=== PATIENT | female | born 1945 | race African-American/Black ===

== ENCOUNTER 2024-09-11 10:22 | Inpatient (IN) | payer OTHER ==
[2024-09-11] VITALS (10 sets, daily range): BP systolic 128–181; BP diastolic 50–68; PULSE 66–78; RESP 12–22; TEMP 98.2–98.9; O2SAT 100
[~2024-09-11] VITALS: Ht 157.5 cm; Wt 92.2 kg
[~2024-09-11 10:22] MED LIST: DILT-14 PO; DULO1CAP5 PO; FEBU40TA6 PO; FURO40TA4 PO; POTA-228 PO
--- NOTE | 2024-09-11 10:44 | ED.PDOC ---
HPI Comments 78y F who presents to the ED via EMS for chief complaint of chest pain - pt states she has been having chest pain with associated shortness of breath for the past 6 days. - pt states her chest pain was exacerbated today and pt called EMS to the scene - EMS states pt had 02 sat of 100% on room air but was placed on 2 L due to complaint of shortness of breath and arrived to the ED on supplemental 02 - pt states the pain is center of chest, non-radiating, with no other exac erbating or relieving factors - pt also states she is on blood thinner but unknown which one - pt otherwise denies any other symptoms at this time PMH: CHF, DM 2(cataracts, peripheral neuropathy), HTN, colon and breast cancer, ckd x3, obesity, HLD, acute on chronic resp failure, aortic valve disease, pulm HTN, rhabdomyolysis, PSH: breast cancer surgery, Meds: metformin, Cymbalta, glipizide, diltiazem, Lasix, Allergies: morphine social history: denies ETOH use, denies tobacco use, denies drug use SUZIE ALCARAZ: VERENICE, CP/SOB/ MURMUR/ BLOOD THINNERS. HPI: Poor Historian. Midsternal chest pain nonradiating with the associated shortness of breath x1 day. Patient is brought in from [facility] for evaluation of chest pain. Per EMS report, patient's oxygen was stable at room air. She has been on supplemental oxygen and went to visit the clinic today to be weaned off of her oxygen. Patient states that she is feeling better at this time but still has some chest pain. Later in the course at this time at 1:40 p.m. patient when asked she said that she has black stool. She said that she had blood transfusion last March. Black stool for the last three days. REVIEW OF SYSTEMS: CONSTITUTIONAL: Denies acute: fever, diaphoresis, chills, generalized weakness. HEAD: Denies acute: headache, photophobia Eyes: Denies acute: Double vision, vision loss, eye pain, eye discharge. EARS: Denies acute: tinnitus, hearing loss, ear discharge, ear pain, THROAT: Denies acute: sore throat, swelling, difficulty swallowing , pain with swallowing, change in voice. NECK: Denies acute: neck pain, neck swelling, stiff neck. HEART: Denies acute : chest pain, palpitations, LUNGS: Denies acute: wheezing, cough, hemoptysis ABDOMEN: Denies acute: abdominal pain, Nausea, Vomiting, diarrhea, melena , hematemesis, hematochezia SKIN: Denies acute: rash, redness, lesions, itchiness. EXTREMITIES: Denies acute: calf pain, numbness, tingling, weakness, denies pain in extremity. Denies acute: Low back pain. Neuro: Denies acute: focal neurological deficit, motor or sensory focal neurological deficit, tremors, seizure like activity, confusion, dizziness, change in mental status, loss of bowel or bladder function, cauda equina like symptoms. : Denies acute: dysuria, hematuria, flank pain, increase in urinary frequency. PSYCH: Denies acute: hallucination, suicidal ideation, homicidal ideation. FEMALE: Denies acute: abnormal vaginal bleeding, foul odor, unusual discharge. PHYSICAL EXAM: General: ---mild-----acute distress, awake and alert. Head: normocephalic, atraumatic. Neck: supple, trachea is midline, no swelling. Throat: Normal phonation. Eyes:, no erythema, no purulent discharge, no proptosis, no icterus. Heart: regular rate, regular rhythm, mild murmur appreciated. Lungs: no apparent respiratory distress, Able to speak in full sentences. No wheezing, no rhonchi, no crackles. No stridors Clear to auscultation bilaterally. Abdomen: non tender to palpation, non distended, soft, no guarding, no rebound, + bowel sounds. Neuro: Awake, Alert, oriented to name, self, situation, follows commands GCS=15. Speech is normal. Skin: no petechia, no purpura, no cyanosis, non-pale, not jaundice. Lower extremities: --trace bilateral- Pitting edema no deformity, no focal swelling, no calf TTP. Makes eye contact. moves all four extremities. Face: no apparent facial droop. ED COURSE: Chief Complaint: Chest Pain Time Seen by MD: 11:24 Reviewed Notes: Nurses Notes, Steel Pourer Notes, Medications Allergies: Coded Allergies: NSAIDs (Verified Allergy, Unknown, 09/11/24) Information Source: Patient, Emergency Med Personnel Mode of Arrival: EMS Brought in by: EMS Was a procedure done? Was a procedure done?: No CP Differential Dx Differential Diagnosis: N/A Differential Diagnosis: Other (Ddx include but not limitied to gastritis, musculoskeletal pain, radiculopathy, atypical chest pain, dissection, aneurysm, ACS, unstable angina, hiatal hernia, GERD, anxiety, costochondritis, PE, pneumothroax, neoplasm, cardiac ischemia, drug abuse, anemia.) X-Ray, Labs, Meds, VS Vital Signs Date Time Temp Pulse Resp B/P (MAP) Pulse Ox O2 Delivery O2 Flow Rate FiO2 09/11/24 18:00 71 18 173/53 (93) 98 09/11/24 17:45 98.8 75 22 175/68 98.8 09/11/24 17:00 72 18 161/60 (93) 100 09/11/24 16:55 98.9 66 16 181/67 98.9 09/11/24 16:33 98.8 72 18 165/63 98.8 09/11/24 16:00 69 09/11/24 16:00 72 20 165/63 (97) 100 09/11/24 15:00 70 20 157/61 (93) 100 09/11/24 14:00 71 18 171/65 (100) 100 09/11/24 13:00 74 16 176/56 (96) 100 09/11/24 12:00 71 20 157/59 (91) 100 09/11/24 12:00 72 09/11/24 11:50 72 18 100 Nasal Cannula* 2 28 09/11/24 11:50 98.8 72 18 150/54 (86) 100 98.8 09/11/24 10:41 82 09/11/24 10:22 98.1 67 24 139/55 (83) 100 98.1 Lab Test 09/11/24 14:02 09/11/24 12:00 09/11/24 11:08 Range/Units Troponin I High Sensitivity 12 9 10 </=34 ng/L White Blood Count 6.3 4.4-10.8 10^3/uL Red Blood Count 2.92 L 4.0-5.20 10^6/uL Hemoglobin 5.9 *L 12.2-16.2 g/dL Hematocrit 19.0 L 36.0-46.0 % Mean Corpuscular Volume 65.3 L 80.0-100.0 fL Mean Corpuscular Hemoglobin 20.4 L 28.0-32.0 pg Mean Corpuscular Hemoglobin Concent 31.2 L 32.0-36.0 g/dL Red Cell Distribution Width 22.1 H 11.8-14.3 % Platelet Count 235 140-450 10^3/uL Mean Platelet Volume 8.5 6.9-10.8 fL Neutrophils (%) (Auto) 71.7 37.0-80.0 % Lymphocytes (%) (Auto) 20.2 10.0-50.0 % Monocytes (%) (Auto) 5.4 0.0-12.0 % Eosinophils (%) (Auto) 1.3 0.0-7.0 % Basophils (%) (Auto) 1.4 0.0-2.0 % Neutrophils # (Auto) 4.5 1.6-8.6 10 ^3/uL Lymphocytes # (Auto) 1.3 0.4-5.4 10 ^3/uL Monocytes # (Auto) 0.3 0-1.3 10 ^3/uL Eosinophils # (Auto) 0.1 0-0.8 10 ^3/uL Basophils # (Auto) 0.1 0-0.2 10 ^3/uL Nucleated Red Blood Cells 0.1 % Platelet Estimate Adequate Hypochromasia (manual) Moderate Anisocytosis (manual) Slight Microcytosis Moderate Ovalocytes Few Sodium Level 142 136-145 mmol/L Potassium Level 4.1 3.5-5.1 mmol/L Chloride Level 104 98-107 mmol/L Carbon Dioxide Level 30 20-31 mmol/L Anion Gap 8 5-15 Blood Urea Nitrogen 35 H 9-23 mg/dL Creatinine 1.41 H 0.550-1.02 mg/dL Glomerular Filtration Rate Calc 38 >90 mL/min BUN/Creatinine Ratio 24.8 H 10.0-20.0 Serum Glucose 154 H 74-106 mg/dL Calcium Level 11.0 H 8.7-10.4 mg/dL Total Bilirubin 0.4 0.2-1.0 mg/dL Aspartate Amino Transferase (AST) 11 L 13-40 U/L Alanine Aminotransferase (ALT) 15 7-40 U/L Alkaline Phosphatase 54 46-116 U/L B-Type Natriuretic Peptide 104.82 0-100 pg/mL Total Protein 6.9 5.7-8.2 g/dL Albumin 4.2 3.2-4.8 g/dL Current Medications Medications (Trade) Dose Ordered Sig/Nelida Route Start Time Stop Time Status Last Admin Acetaminophen/ Hydrocodone Bitart (Onia 5/325MG Tab) 1 tab ONCE ONCE PO 09/11/24 12:45 09/11/24 12:46 DC 09/11/24 12:58 Pantoprazole Sodium (Protonix) 40 mg ONCE ONCE IV 09/11/24 13:45 09/11/24 13:47 DC 09/11/24 16:09 [place] [address] Ph: [phone] DIAGNOSTIC IMAGING Diagnostic Imaging Report : [id number] Signed PATIENT: SUZIE ALCARAZ ACCT: [id number] UNIT: [id number] : 1945 LOC: ER ROOM / BED: / AGE / SEX: 78 / F ADM STATUS: REG ER SERVICE 1041 ORDERING PHYSICIAN: ALONA CHERRY DO PROCEDURE(s): CXRP - CHEST PORTABLE REASON: cp/sob ORDER NUMBER(s): [id number], ACCESSION NUMBER(s): [id number] XY CHEST PORTABLE, HISTORY: cp/sob COMPARISON: None None TECHNICAL DATA: 1 view of the chest was obtained. FINDINGS: Lines and tubes: None Cardiomediastinal silhouette: normal Pulmonary vasculature: normal Lung expansion: normal Lung airspace: normal Lung interstitium: normal Pleura: normal Pneumothorax: no Bones: Unremarkable Other: no IMPRESSION: No acute intrathoracic abnormality. ATED BY: CESAR BUSTILLO MD DICTATED DATE/TIME: 09/11/241127 SIGNED BY: CESAR BUSTILLO MD SIGNED DATE/TIME: 09/11/241127 CC: Time of 1ST Reevaluation: 13:44 (The case was discussed with the [facility] admitting team (HPI, physical exam, labs and diagnostic tests that were available at the time of disposition, ED course, treatment plan) on the phone. They transfer the patient to their service by ALS for further evaluation and treatment. Dr. Degroot. Authorization number is--[id number] states that her chest pain improved. Patient consents to blood transfusion.) Reevaluation 1ST: Unchanged Time of 2ND Reevaluation: 20:52 Reevaluation 2ND: Improved Patient Education/Counseling: Diagnosis, Treatment Family Education/Counseling: No Family Present Comments Patient presented with the above HPI.--chest pain/dyspnea----workup was initiated. patient was found with the above mentioned diagnosis. the following medications were ordered: please refer to order lists of meds and tests obtained by myself Dr. Cherry. Patient ED course and VS have been stabilized. Patient has been reassessed in the ED and remained in a stable condition. Pertinent incidental findings were discussed with the patient and/or family. Patient/family voices understanding and is agreeable with plan. Patient has been observed in the ED adequate length of time to insure improvement/stability. Escalation of care considered: Consideration of escalation to observation or admission Patient was consented for blood transfusion. We contacted [facility] and they took an excessively long time to respond and arrange for transfer. There was the major delay of care due to [facility]. Patient was ADMITTED to the medicine team for further evaluation and treatment of their presentation. All the reports of any imaging studies that were ordered by myself were reviewed by myself. Departure 1 Departure Time of Disposition: 12:20 Impression: Primary Impression: Symptomatic anemia Additional Impressions: Chest pain Dyspnea Melena Disposition: ADMITTED INPATIENT Admit to: [facility] Condition: Guarded Discharged With: Self Critical Care Note Critical Care Time?: Yes (45 min-critical care time only) Heart Score Heart Score: Heart Score Response (Comments) Value History Moderate Suspicious 1 EKG Normal 0 Age >65 2 Risk Factors >3 or Hx ASHD 2 Troponin Normal limit 0 Total 5 I personally scribed for ALONA CHERRY DO ([email or web address]) on 09/11/24 at 10:44. Electronically submitted by Altaf Godoy ([email or web address]). I personally scribed for ALONA CHERRY DO (CHRISTIANOFARMI) on 09/11/24 at 11:26. Electronically submitted by Altaf Godoy ([email or web address]). I personally scribed for ALONA CHERRY DO ([email or web address]) on 09/11/24 at 13:52. Electronically submitted by Altaf Godoy ([email or web address]). ALONA CHERRY DO September 11, 2024 10:44
[2024-09-11 11:17] LABS: Basophils # (auto) 0.1 10 ^3/uL (0-0.2); Eosinophils # (auto) 0.1 10 ^3/uL (0-0.8); Eosinophils % (auto) 1.3 % (0.0-7.0); Lymphocytes # (auto) 1.3 10 ^3/uL (0.4-5.4); Mean Corpuscular Hemoglobin 20.4 pg (28.0-32.0); Mean Corpuscular Hgb Conc. 31.2 g/dL (32.0-36.0); Mean Corpuscular Volume 65.3 fL (80.0-100.0); Nucleated Red Blood Cells % 0.1 %; Red Blood Cells 2.92 10^6/uL (4.0-5.20)
[2024-09-11 11:18] LABS: Basophils % (auto) 1.4 % (0.0-2.0); Lymphocytes % (auto) 20.2 % (10.0-50.0); Monocytes # (auto) 0.3 10 ^3/uL (0-1.3); Monocytes % (auto) 5.4 % (0.0-12.0); Neutrophils # (auto) 4.5 10 ^3/uL (1.6-8.6); Neutrophils % (auto) 71.7 % (37.0-80.0); Platelet Count (auto) 235 10^3/uL (140-450); White Blood Cell 6.3 10^3/uL (4.4-10.8)
[2024-09-11 11:21] LABS: Red Cell Distribution Width 22.1 % (11.8-14.3)
[2024-09-11 11:23] LABS: Hemoglobin 5.9 g/dL (12.2-16.2)
[2024-09-11] MEDS: NITROGLYCERIN 0.4 MG SL TAB SL ONE (11:30)
--- NOTE | 2024-09-11 11:30 | DVH ---
XY CHEST PORTABLE, HISTORY: cp/sob COMPARISON: None None TECHNICAL DATA: 1 view of the chest was obtained. FINDINGS: Lines and tubes: None Cardiomediastinal silhouette: normal Pulmonary vasculature: normal Lung expansion: normal Lung airspace: normal Lung interstitium: normal Pleura: normal Pneumothorax: no Bones: Unremarkable Other: no IMPRESSION: No acute intrathoracic abnormality.
[2024-09-11 11:32] LABS: Alanine Aminotransferase 15 U/L (7-40); Alkaline Phosphatase 54 U/L (46-116); Anion Gap 8 (5-15); BUN/Creatinine Ratio 24.8 (10.0-20.0); Carbon Dioxide 30 mmol/L (20-31); Chloride 104 mmol/L (98-107); Potassium 4.1 mmol/L (3.5-5.1); Sodium 142 mmol/L (136-145); Total Protein 6.9 g/dL (5.7-8.2)
[2024-09-11 11:33] LABS: Albumin 4.2 g/dL (3.2-4.8); Aspartate Aminotransferase 11 U/L (13-40); Bilirubin, Total 0.4 mg/dL (0.2-1.0); Blood Urea Nitrogen 35 mg/dL (9-23); Glucose 154 mg/dL (74-106)
[2024-09-11 11:57] LABS: Platelet Estimate Adequate
[2024-09-11 11:58] LABS: Anisocytosis Slight; Hypochromia Moderate
[2024-09-11 12:00] LABS: Ovalocytes FEW
[2024-09-11] MEDS: HYDROcodone-ACET 5/325MG TAB PO ONE (12:58)
[2024-09-11] MEDS: HYDROcodone-ACET 5/325MG TAB ONE (13:06)
[2024-09-11] MEDS: PANTOPRAZOLE 40 MG/10 ML VIAL INJ IV ONE (15:02)
[2024-09-11] MEDS ORDERED: ONDANSETRON HCL 4 MG/2 ML VIAL IV PRN (19:00)
[2024-09-11] MEDS ORDERED: hydrALAZINE HCL 20 MG/ML VL IV PRN (19:00)
--- NOTE | 2024-09-11 19:02 | ECG ---
[facility] Test Date: 2024-09-11 Test Time: 10:28:59 Pat Name: SUZIE ALCARAZ Department: ED Room: 0280 Gender: F Family Welfare Social Work Professor: NATALIIA : 1945 Requested By: ALONA CHERRY Order Number: [id number] Reading MD: Trey Esposito Measurements Intervals Mobile Rate: 82 P: 0 SD: 0 QRS: 18 QRSD: 83 T: 143 QT: 374 QTc: 437 Interpretive Statements Atrial flutter with predominant 4:1 AV block LVH with secondary repolarization abnormality Anterior Q waves, possibly due to LVH Electronically Signed On 09-12-2024 21:12:36 PDT by Trey Esposito Please click the below link to view image of tracing.
[2024-09-11 20:26] LABS: INR 1.07 (0.9-1.15); Partial Thromboplastin Time 23.6 SEC (24.5-34.5); Prothrombin Time 11.3 sec (9.3-11.8)
--- NOTE | 2024-09-11 21:36 | DVHHP2 ---
History of Present Illness Reason for Visit: Shortness for breath History of Present Illness 78-year-old female presents for evaluation of shortness for breath. Patient initially presented to have her oxygen tank refilled. She was complaining of shortness for breath that has been ongoing for the past six days as well as intermittent substernal chest pain. A pertinent further assessment patient also relays having dark colored stools over the past three days. She reports taking a blood thinner but does not recall the name. Denies hematemesis or melena. No dizziness. No other acute complaints reported. Past Medical History Diabetes mellitus, congestive heart failure, hypertension, breast cancer, pulmonary hypertension, aortic valve Past Surgical History Bilateral mastectomy, Family History Noncontributory Smoke: No ALCOHOL: none Drugs: None Lives: with Family Review of Systems Review of Systems Review of systems are currently negative otherwise addressed in HPI. Allergies: Coded Allergies: NSAIDs (Verified Allergy, Unknown, 09/11/24) Medications Current Medications Medications Dose Ordered Sig/Nelida Route Start Time Stop Time Status Last Admin Dose Admin Diltiazem HCl 120 mg DAILY PO 09/12/24 10:00 Hydralazine HCl 10 mg Q6HP PRN IV 09/11/24 19:00 Furosemide 20 mg DAILY IV 09/12/24 10:00 Ondansetron HCl 4 mg Q4HP PRN IV 09/11/24 19:00 Pantoprazole Sodium 40 mg BID IV 09/11/24 22:00 Acetaminophen/ Hydrocodone Bitart 1 tab Q6HPRN PRN PO 09/11/24 21:30 UNV Exam Vital Signs Vital Signs Date Time Temp Pulse Resp B/P (MAP) Pulse Ox O2 Delivery O2 Flow Rate FiO2 09/11/24 20:00 70 09/11/24 19:10 98.9 19 128/50 98.9 09/11/24 18:00 98 09/11/24 11:50 Nasal Cannula* 2 28 Exam Gen: 78-year-old female in mild distress. Skin: Warm, dry, normal color and texture, no rash. HEENT: Normocephalic atraumatic, mucous membranes moist and pink. Neck: Cervical and supraclavicular nodes normal without enlargement, trachea is midline, thyroid gland is normal without masses. Pulmonary: Clear to auscultation and percussion bilaterally. Cardiac: Regular rate and rhythm. No murmur Abdomen: Soft, nontender, nondistended, bowel sounds present all 4 quadrants, no guarding, no rigidity, no organomegaly. Extremities: No cyanosis, clubbing, no edema Neuro: Cranial nerves II through XII grossly intact, normal affect and speech, no focal motor deficits. Labs/Xrays ORDERING PHYSICIAN: ALONA CHERRY DO PROCEDURE(s): CXRP - CHEST PORTABLE REASON: cp/sob ORDER NUMBER(s): [id number], ACCESSION NUMBER(s): [id number] XY CHEST PORTABLE, HISTORY: cp/sob COMPARISON: None None TECHNICAL DATA: 1 view of the chest was obtained. FINDINGS: Lines and tubes: None Cardiomediastinal silhouette: normal Pulmonary vasculature: normal Lung expansion: normal Lung airspace: normal Lung interstitium: normal Pleura: normal Pneumothorax: no Bones: Unremarkable Other: no IMPRESSION: No acute intrathoracic abnormality. Labs Test 09/11/24 19:59 09/11/24 14:02 09/11/24 11:08 Range/Units Prothrombin Time 11.3 9.3-11.8 sec Prothrombin Time INR 1.07 0.9-1.15 Activated Partial Thromboplast Time 23.6 L 24.5-34.5 SEC Troponin I High Sensitivity 12 </=34 ng/L White Blood Count 6.3 4.4-10.8 10^3/uL Red Blood Count 2.92 L 4.0-5.20 10^6/uL Hemoglobin 5.9 *L 12.2-16.2 g/dL Hematocrit 19.0 L 36.0-46.0 % Mean Corpuscular Volume 65.3 L 80.0-100.0 fL Mean Corpuscular Hemoglobin 20.4 L 28.0-32.0 pg Mean Corpuscular Hemoglobin Concent 31.2 L 32.0-36.0 g/dL Red Cell Distribution Width 22.1 H 11.8-14.3 % Platelet Count 235 140-450 10^3/uL Mean Platelet Volume 8.5 6.9-10.8 fL Neutrophils (%) (Auto) 71.7 37.0-80.0 % Lymphocytes (%) (Auto) 20.2 10.0-50.0 % Monocytes (%) (Auto) 5.4 0.0-12.0 % Eosinophils (%) (Auto) 1.3 0.0-7.0 % Basophils (%) (Auto) 1.4 0.0-2.0 % Neutrophils # (Auto) 4.5 1.6-8.6 10 ^3/uL Lymphocytes # (Auto) 1.3 0.4-5.4 10 ^3/uL Monocytes # (Auto) 0.3 0-1.3 10 ^3/uL Eosinophils # (Auto) 0.1 0-0.8 10 ^3/uL Basophils # (Auto) 0.1 0-0.2 10 ^3/uL Nucleated Red Blood Cells 0.1 % Platelet Estimate Adequate Hypochromasia (manual) Moderate Anisocytosis (manual) Slight Microcytosis Moderate Ovalocytes Few Sodium Level 142 136-145 mmol/L Potassium Level 4.1 3.5-5.1 mmol/L Chloride Level 104 98-107 mmol/L Carbon Dioxide Level 30 20-31 mmol/L Anion Gap 8 5-15 Blood Urea Nitrogen 35 H 9-23 mg/dL Creatinine 1.41 H 0.550-1.02 mg/dL Glomerular Filtration Rate Calc 38 >90 mL/min BUN/Creatinine Ratio 24.8 H 10.0-20.0 Serum Glucose 154 H 74-106 mg/dL Calcium Level 11.0 H 8.7-10.4 mg/dL Total Bilirubin 0.4 0.2-1.0 mg/dL Aspartate Amino Transferase (AST) 11 L 13-40 U/L Alanine Aminotransferase (ALT) 15 7-40 U/L Alkaline Phosphatase 54 46-116 U/L B-Type Natriuretic Peptide 104.82 0-100 pg/mL Total Protein 6.9 5.7-8.2 g/dL Albumin 4.2 3.2-4.8 g/dL Assessment/Plan Assessment/Plan Assessment Symptomatic anemia Possible GI bleed Diabetes mellitus Congestive heart failure Chronic kidney disease Accelerated hypertension Plan Admit the patient to telemetry to the hospitalist 2 units of packed red cells transfused Clear liquid diet GI consultation Resume home medications Continue treatment per orders. Plan discussed with: Patient My Orders Orders - ROOSEVELT CANCINO AGACNP Procedure Category Date Status Time Diltiazem Er Capsule PHA 09/12/24 In Process (Cardizem Er Capsul 10:00 Hydralazine Injection PHA 09/11/24 In Process (Apresoline Inject 19:00 Furosemide Injection PHA 09/12/24 In Process (Lasix Injection) 10:00 * [facility] Licensed Pesticide Applicator CONS 09/11/24 Transmitted 18:57 Stool Occult Blood LAB 09/11/24 Logged 18:57 Basic Metabolic Panel LAB 09/12/24 Verified 04:00 Complete Blood Count LAB 09/12/24 Verified 04:00 Condition: Stable EMANUEL 09/11/24 In Process 18:57 Clear Liq Diet DIET 09/12/24 Transmitted Breakfast Bedrest With Bathroom EMANUEL 09/11/24 In Process Privileg 18:57 Pantoprazole PHA 09/11/24 In Process (Protonix) 22:00 Admit ADMIT 09/11/24 Verified 18:57 Ondansetron Hcl PHA 09/11/24 In Process (Zofran) 19:00 Hydrocodone-Acet PHA 09/11/24 Logged 5/325mg Tab ([place] 21:30 Date of Service: September 11, 2024 Billing Provider: ROOSEVELT CANCINO Common Visit Codes: 90067-[id number] INP/OBS CARE (HIGH) ROOSEVELT CANCINO September 11, 2024 21:36
[2024-09-11] MEDS: HYDROcodone-ACET 5/325MG TAB PO PRN (22:29)
[2024-09-11] MEDS: PANTOPRAZOLE 40 MG/10 ML VIAL INJ IV SCH (22:29)
[2024-09-12] VITALS (9 sets, daily range): BP systolic 104–145; BP diastolic 50–60; PULSE 62–73; RESP 17–18; TEMP 97.7–98; O2SAT 97–100
[2024-09-12 06:22] LABS: Chloride 104 mmol/L (98-107); Potassium 3.9 mmol/L (3.5-5.1); Sodium 141 mmol/L (136-145)
[2024-09-12 06:23] LABS: Anion Gap 7 (5-15); Calcium 10.1 mg/dL (8.7-10.4); Carbon Dioxide 30 mmol/L (20-31)
[2024-09-12 06:28] LABS: BUN/Creatinine Ratio 19.3 (10.0-20.0)
[2024-09-12 06:32] LABS: Blood Urea Nitrogen 29 mg/dL (9-23); Glucose 203 mg/dL (74-106)
[2024-09-12 07:24] LABS: Basophils # (auto) 0 10 ^3/uL (0-0.2); Eosinophils # (auto) 0.1 10 ^3/uL (0-0.8); Hemoglobin 7.1 g/dL (12.2-16.2); Lymphocytes # (auto) 0.9 10 ^3/uL (0.4-5.4); Monocytes # (auto) 0.3 10 ^3/uL (0-1.3); Nucleated Red Blood Cells % 0.1 %; White Blood Cell 5.4 10^3/uL (4.4-10.8)
[2024-09-12 07:27] LABS: Basophils % (auto) 0.5 % (0.0-2.0); Eosinophils % (auto) 1.9 % (0.0-7.0); Lymphocytes % (auto) 16.4 % (10.0-50.0); Mean Corpuscular Hemoglobin 22.8 pg (28.0-32.0); Mean Corpuscular Hgb Conc. 32.2 g/dL (32.0-36.0); Mean Corpuscular Volume 70.8 fL (80.0-100.0); Monocytes % (auto) 6.2 % (0.0-12.0); Neutrophils # (auto) 4.1 10 ^3/uL (1.6-8.6); Platelet Count (auto) 178 10^3/uL (140-450); Red Blood Cells 3.11 10^6/uL (4.0-5.20); Red Cell Distribution Width 25.3 % (11.8-14.3)
[2024-09-12] MEDS: FUROSEMIDE 20 MG/2 ML VIAL IV SCH (09:25)
[2024-09-12] MEDS: dilTIAZem 120MG ER CAP PO SCH (09:26)
--- NOTE | 2024-09-12 15:04 | DVHINCON2 ---
GI Consult Consult Note GI consult note Date of Consultation: 09/12/2024 Chief Complaint: Anemia, GI bleed Referring Physician: Bravo SHAH H&P: 78-year-old female presented to ER for evaluation of shortness of breath. Patient also has complains of substernal chest pain. Patient also complaining of dark-colored stools for the past three days. Patient takes blood thinner but is not sure of the name and we will have her bring us a list. No abdominal pain. BM one day ago, black color. No red blood in stool. No nausea or vomiting. Denies hematemesis. Patient has history of anemia status post blood transfusion at [facility] March 2024. Patient has had a colonoscopy in the past, unsure when and what results. Patient has history of constipation, takes MiraLax every day Patient is scheduled for an outpatient colonoscopy at [place] but again unsure about date Patient on home oxygen Past Medical History: Diabetes mellitus, congestive heart failure, hypertension, breast cancer, pulmonary hypertension, aortic valve Past Surgical History: Bilateral mastectomy, Social History: NO smoking, drinking ETOH and use of illegal drugs. Family History: Noncontributory Review of Systems: Constitutional: no fever, chill, weight loss HEENT: no eye pain, no hearing loss, no oral lesion, no scleral icterus Heart: + chest pain, no chest pressure Lung: + dyspnea with exertion Abdomen: see HPI Physical exam: General: NAD, AAOX3 Chest: lung franco clear to auscultation Heart: RRR, no murmur Abdomen: non-distended, no tenderness to palpation, +BS Labs: Labs Test 09/12/24 05:19 09/11/24 19:59 09/11/24 14:02 09/11/24 11:08 Range/Units White Blood Count 5.4 4.4-10.8 10^3/uL Red Blood Count 3.11 L 4.0-5.20 10^6/uL Hemoglobin 7.1 #L 12.2-16.2 g/dL Hematocrit 22.0 #L 36.0-46.0 % Mean Corpuscular Volume 70.8 #L 80.0-100.0 fL Mean Corpuscular Hemoglobin 22.8 L 28.0-32.0 pg Mean Corpuscular Hemoglobin Concent 32.2 32.0-36.0 g/dL Red Cell Distribution Width 25.3 H 11.8-14.3 % Platelet Count 178 140-450 10^3/uL Mean Platelet Volume 8.5 6.9-10.8 fL Neutrophils (%) (Auto) 75.0 37.0-80.0 % Lymphocytes (%) (Auto) 16.4 10.0-50.0 % Monocytes (%) (Auto) 6.2 0.0-12.0 % Eosinophils (%) (Auto) 1.9 0.0-7.0 % Basophils (%) (Auto) 0.5 0.0-2.0 % Neutrophils # (Auto) 4.1 1.6-8.6 10 ^3/uL Lymphocytes # (Auto) 0.9 0.4-5.4 10 ^3/uL Monocytes # (Auto) 0.3 0-1.3 10 ^3/uL Eosinophils # (Auto) 0.1 0-0.8 10 ^3/uL Basophils # (Auto) 0 0-0.2 10 ^3/uL Nucleated Red Blood Cells 0.1 % Sodium Level 141 136-145 mmol/L Potassium Level 3.9 3.5-5.1 mmol/L Chloride Level 104 98-107 mmol/L Carbon Dioxide Level 30 20-31 mmol/L Anion Gap 7 5-15 Blood Urea Nitrogen 29 H 9-23 mg/dL Creatinine 1.50 H 0.550-1.02 mg/dL Glomerular Filtration Rate Calc 35 >90 mL/min BUN/Creatinine Ratio 19.3 10.0-20.0 Serum Glucose 203 H 74-106 mg/dL Calcium Level 10.1 8.7-10.4 mg/dL Prothrombin Time 11.3 9.3-11.8 sec Prothrombin Time INR 1.07 0.9-1.15 Activated Partial Thromboplast Time 23.6 L 24.5-34.5 SEC Troponin I High Sensitivity 12 </=34 ng/L Platelet Estimate Adequate Hypochromasia (manual) Moderate Anisocytosis (manual) Slight Microcytosis Moderate Ovalocytes Few Total Bilirubin 0.4 0.2-1.0 mg/dL Aspartate Amino Transferase (AST) 11 L 13-40 U/L Alanine Aminotransferase (ALT) 15 7-40 U/L Alkaline Phosphatase 54 46-116 U/L B-Type Natriuretic Peptide 104.82 0-100 pg/mL Total Protein 6.9 5.7-8.2 g/dL Albumin 4.2 3.2-4.8 g/dL Imaging: Assessment: Severe anemia Possible GI bleed Congestive heart failure Plan: Discussed with Dr. Gonzalez Protonix 40 mg IV b.i.d. MiraLax Repeat labs in a.m. Stool for occult blood Request for cardiology consult, for possible cardiac clearance if patient needs EGD NPO after midnight Discussed plan with patient and RN Thank you for this consult Date of Service: September 12, 2024 Billing Provider: SONJA BACK Common Visit Codes: CONSULT ONLY Consultation Codes: [id number] CONSULT <60MIN SONJA BACK September 12, 2024 15:04
[2024-09-12] MEDS ORDERED: DEXTROSE (50%) 50ML SYRG IV PRN (15:15)
--- NOTE | 2024-09-12 15:21 | DVHPN2 ---
Progress Note Date Seen: September 12, 2024 Medical Necessity Reason Pt with a Central, PICC or Fol: No Subjective Patient reports: No new complaints Review of Systems: HEENT:Normal, CVS:Normal, RESPIRATORY:Normal, GI:Normal, :Normal, MSK:Normal, NEURO:Normal Objective vital signs Vital Sign Date Time Temp Pulse Resp B/P (MAP) Pulse Ox O2 Delivery O2 Flow Rate FiO2 09/12/24 13:00 98.0 68 18 129/59 (82) 100 98.0 09/12/24 08:17 Nasal Cannula* 3 32 Total Intake and Output 09/11/24 09/11/24 09/12/24 15:00 23:00 07:00 Intake Total 900 ml 675 ml Output Total 0 ml Balance 900 ml 675 ml medications Current Medications Medications Dose Ordered Sig/Nelida Route Start Time Stop Time Status Last Admin Dose Admin Diltiazem HCl 120 mg DAILY PO 09/12/24 10:00 09/12/24 09:26 120 MG Hydralazine HCl 10 mg Q6HP PRN IV 09/11/24 19:00 Furosemide 20 mg DAILY IV 09/12/24 10:00 09/12/24 09:25 20 MG Ondansetron HCl 4 mg Q4HP PRN IV 09/11/24 19:00 Pantoprazole Sodium 40 mg BID IV 09/11/24 22:00 09/12/24 09:25 40 MG Acetaminophen/ Hydrocodone Bitart 1 tab Q6HPRN PRN PO 09/11/24 21:30 09/11/24 22:29 1 TAB Examination: GENERAL:Normal, HEENT:Normal, NECK:Normal, LUNGS:Normal, LUNGS:Abnormal (on oxygen), CVS:Normal, ABDOMEN:Normal, MSK:Normal, SKIN:Normal, NEURO:Normal, :Normal laboratory and microbiology Laboratory Tests 09/12/24 05:19 Test 09/12/24 05:19 Range/Units Serum Glucose 203 H 74-106 mg/dL Problem List/Assessment/Plan Problem List/Assessment/Plan #1 anemia ?gi bleed: ppi, egd #2 h/o colon cancer s/p surgery #3 h/o breast cancer s/p bilateral mastectomy #4 dm: ssi #5 htn #6 obesity #7 chronic resp failure #8 copd #9 chronic systolic/diastolic heart failure #10 ?acute renal failure ?vasomotor nephropathy advance care planning- full code- time spent 19 mins Plan discussed with: Patient My Orders My Orders Orders - ROOSEVELT ROSAS MD Procedure Category Date Status Time Iron Ivpb PHA 09/13/24 Transmitted 12:00 Glucose Blood PHA 09/12/24 Transmitted (Accu-Chek Comfort 18:00 Mild Sliding Scale PHA 09/12/24 Transmitted Npo - Q6hr 18:00 Dextrose 50% Syringe PHA 09/12/24 Transmitted 15:15 Echo 2d Mode Cardiac US 09/12/24 Transmitted DOP 15:15 Urinalysis LAB 09/12/24 Uncollected 15:15 Basic Metabolic Panel LAB 09/13/24 Verified 06:00 Complete Blood Count LAB 09/13/24 Verified 06:00 Ferritin LAB 09/13/24 Verified 05:00 Iron Panel LAB 09/13/24 Verified 06:00 Date of Service: September 12, 2024 Billing Provider: ROOSEVELT ROSAS MD Common Visit Codes: [id number] INP/OBS CARE(HIGH) Secondary Visit Codes: [id number] CARE PLAN 30 MINUTES CC Plasma Assessment Blood Product Administration S: [id number] ROOSEVELT ROSAS MD September 12, 2024 15:21
[2024-09-12] MEDS: POLYETHYLENE GLYCOL 17 GM PWDR PO ONE (17:27)
[2024-09-12] MEDS: InsuLIN REG 1unit/0.01ml Soln (100units/ml) SC SCH (18:00)
[2024-09-12] MEDS: ACCU-CHEK COMFORT CURVE STRIP VI SCH (18:28)
[2024-09-12] MEDS ORDERED: FEBU40TA PO (18:34)
[2024-09-12] MEDS ORDERED: GLIP-204 PO (18:34)
[2024-09-12] MEDS ORDERED: ATOR40TA52 PO (18:34)
[2024-09-12] MEDS ORDERED: ASPI-543 PO (18:34)
--- NOTE | 2024-09-12 18:53 | DVHINCON2 ---
Date Seen: September 12, 2024 Referring Physician MD Casey Reason for Consultation CHF, cardiac risk stratification History of Present Illness This is a 78-year-old female who presented to emergency room via EMS with a chief complaint of chest pain. Describes her chest pain as substernal, nonrad iating, tightness like, and associated with shortness of breath. She was found with an oxygen saturation level of 100% on room air and provided supplemental oxygenation EN route to the hospital. He underwent a 12 lead electrocardiogram revealing a normal sinus rhythm (read as atrial flutter by ECG machine). Serial troponin levels are negative. Of note, the patient presented with acute anemia with home medications indicating she is on ASA 81 mg. States she developed black tarry stools for approximately 10 days. She underwent a blood transfusion x2 units stating her symptoms of chest pain and SOB are significantly better. 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 Past Medical History Past medical history reviewed. No other significant than mentioned above. Past Surgical History Bilateral mastectomy Colon resection Family History: Cancer of vagina Maternal Grandmother Diabetes mellitus G8 FATHER Hypertension G8 MOTHER G8 FATHER Family History Family history reviewed. Social History Denies the use of illicit drugs, alcohol, or tobacco use. Allergies: Coded Allergies: NSAIDs (Verified Allergy, Unknown, 09/11/24) Home Meds Reported Medications Aspirin (Aspir-Low) 81 Mg Tab, 81 MG PO DAILY for 30 Days, MG 09/12/24 Atorvastatin Calcium (ATORVASTATIN CALCIUM) 40 Mg Tab, 1 TAB PO DAILY, #30 TAB 5 Refills 09/12/24 Glipizide (Glipizide Xl) 5 Mg Tab, 1 TAB PO DAILY, #30 TAB 5 Refills 09/12/24 Febuxostat (Uloric) 40 Mg Tab, 1 TAB PO DAILY, #90 TAB 1 Refill 09/12/24 Diltiazem HCl Coated Beads (Diltiazem HCl ER) 120 Mg Cap, 1 CAP PO BID for 100 Days, #200 09/12/24 Potassium Chloride (Potassium Chloride ER) 10 Meq Tab, 1 TAB PO BID for 100 Days, #200 09/12/24 Furosemide (Furosemide) 40 Mg Tab, 1 TAB PO DAILY for 100 Days, #100 09/12/24 Febuxostat (Febuxostat) 40 Mg Tab, 1 TAB PO DAILY for 60 Days, #60 09/12/24 Duloxetine HCl (Duloxetine HCl) 30 Mg Cap, 1 CAP PO BID for 50 Days, #100 09/12/24 Home Meds Home medications reviewed. Current Medications Current Medications Medications (Trade) Dose Ordered Sig/Nelida Route PRN Reason Start Time Stop Time Status Last Admin Diltiazem HCl (Cardizem ER Capsule) 120 mg DAILY PO 09/12/24 10:00 09/12/24 09:26 Hydralazine HCl (Apresoline Injection) 10 mg Q6HP PRN IV SBP>150 09/11/24 19:00 Furosemide (Lasix Injection) 20 mg DAILY IV 09/12/24 10:00 09/12/24 15:18 DC 09/12/24 09:25 Ondansetron HCl (Zofran) 4 mg Q4HP PRN IV NAUSEA / VOMITING 09/11/24 19:00 Pantoprazole Sodium (Protonix) 40 mg BID IV 09/11/24 22:00 09/12/24 09:25 Acetaminophen/ Hydrocodone Bitart ([place] 5/325MG Tab) 1 tab Q6HPRN PRN PO MODERATE PAIN (4-6 PAIN SCALE) 09/11/24 21:30 09/11/24 22:29 Iron Sucrose 110 ml @ 110 mls/hr DAILY@1200 IV 09/13/24 12:00 09/17/24 12:59 Diagnostic Test (Pha) (Accu-Chek Comfort Curve T) 1 strip Q6HR 09/12/24 18:00 09/12/24 18:28 Insulin Human Regular (InsuLIN R) Q6HR SC 09/12/24 18:00 Dextrose 50 ml UD PRN IV Blood Sugar LESS THAN 60 09/12/24 15:15 Review of Systems Constitutional: No symptom reported Ears, Nose, & Throat: No symptom reported Eyes: No symptom reported Neurological: No symptoms reported Pulmonary/Respiratory: SOB Cardiovascular: Chest pain Gastrointestinal: No symptom reported Genitourinary: No symptom reported Musculoskeletal: No symptom reported Skin: No symptom reported Psychiatric: No symptom reported Endocrine: No symptom reported Hemotologic/Lymphatic: No symptom reported Vital Signs Vital Signs Date Time Temp Pulse Resp B/P (MAP) Pulse Ox O2 Delivery O2 Flow Rate FiO2 09/12/24 17:00 97.8 62 17 136/51 (79) 99 97.8 09/12/24 08:17 Nasal Cannula* 3 32 Physical Exam General Appearance: Cooperative. Well developed. Obese. In no acute distress Head Exam: Normal inspection Neck Exam: Normal inspection. Non-tender. Normal alignment Pulmonary/Respiratory: Chest non-tender. Clear bilateral breath sounds Cardiovascular/Chest: Regular rate and rhythm. S1, S2. Systolic murmur V/. No JVD. Peripheral Pulses: 2+ Radial (R). 2+ Radial (L). 2+ Pedal (R). 2+ Pedal (L) Abdominal Exam: Normal bowel sounds. Soft. Ankle Exam: Negative ankle edema Lower extremities: Negative lower extremity edema Neuro/Mental Status: A&O x3. Coherent Thoughts/Psych: Normal thought pattern. Inpatient Appearance: In no acute distress Skin Exam: Normal inspection. Pale color. Warm. Dry Labs/Diagnostic Data Labs Test 09/12/24 17:33 09/12/24 05:19 09/11/24 19:59 09/11/24 14:02 Range/Units POC Glucose 130 H 70-106 mg/dl White Blood Count 5.4 4.4-10.8 10^3/uL Red Blood Count 3.11 L 4.0-5.20 10^6/uL Hemoglobin 7.1 #L 12.2-16.2 g/dL Hematocrit 22.0 #L 36.0-46.0 % Mean Corpuscular Volume 70.8 #L 80.0-100.0 fL Mean Corpuscular Hemoglobin 22.8 L 28.0-32.0 pg Mean Corpuscular Hemoglobin Concent 32.2 32.0-36.0 g/dL Red Cell Distribution Width 25.3 H 11.8-14.3 % Platelet Count 178 140-450 10^3/uL Mean Platelet Volume 8.5 6.9-10.8 fL Neutrophils (%) (Auto) 75.0 37.0-80.0 % Lymphocytes (%) (Auto) 16.4 10.0-50.0 % Monocytes (%) (Auto) 6.2 0.0-12.0 % Eosinophils (%) (Auto) 1.9 0.0-7.0 % Basophils (%) (Auto) 0.5 0.0-2.0 % Neutrophils # (Auto) 4.1 1.6-8.6 10 ^3/uL Lymphocytes # (Auto) 0.9 0.4-5.4 10 ^3/uL Monocytes # (Auto) 0.3 0-1.3 10 ^3/uL Eosinophils # (Auto) 0.1 0-0.8 10 ^3/uL Basophils # (Auto) 0 0-0.2 10 ^3/uL Nucleated Red Blood Cells 0.1 % Sodium Level 141 136-145 mmol/L Potassium Level 3.9 3.5-5.1 mmol/L Chloride Level 104 98-107 mmol/L Carbon Dioxide Level 30 20-31 mmol/L Anion Gap 7 5-15 Blood Urea Nitrogen 29 H 9-23 mg/dL Creatinine 1.50 H 0.550-1.02 mg/dL Glomerular Filtration Rate Calc 35 >90 mL/min BUN/Creatinine Ratio 19.3 10.0-20.0 Serum Glucose 203 H 74-106 mg/dL Calcium Level 10.1 8.7-10.4 mg/dL Prothrombin Time 11.3 9.3-11.8 sec Prothrombin Time INR 1.07 0.9-1.15 Activated Partial Thromboplast Time 23.6 L 24.5-34.5 SEC Troponin I High Sensitivity 12 </=34 ng/L Test 09/11/24 11:08 Range/Units Platelet Estimate Adequate Hypochromasia (manual) Moderate Anisocytosis (manual) Slight Microcytosis Moderate Ovalocytes Few Total Bilirubin 0.4 0.2-1.0 mg/dL Aspartate Amino Transferase (AST) 11 L 13-40 U/L Alanine Aminotransferase (ALT) 15 7-40 U/L Alkaline Phosphatase 54 46-116 U/L B-Type Natriuretic Peptide 104.82 0-100 pg/mL Total Protein 6.9 5.7-8.2 g/dL Albumin 4.2 3.2-4.8 g/dL Assessment Preprocedural cardiovascular examination Hypertrophic obstructive cardiomyopathy Aortic valve insufficiency, moderate to severe degree Pulmonary hypertension, moderate degree Chest pain in the setting of severe anemia (on ASA) Lower GI bleed status post transfusions Hypertension Bgz-fylnqko-wlclnwffi diabetes mellitus Obesity Plan/Recommendation (Dr. Esposito) Patient presented with chest pain/shortness of breath in the setting of acute anemia. Continue blood transfusions as necessary and GI recommendations. She is cardiac stable at this time. Echocardiogram revealed a preliminary EF of 60% with a moderate to severe degree of aortic valve insufficiency. Revised cardiac risk index (Krzysztof criteria): indicated a 6.0% risk of , SD or cardiac arrest. The patient has underlying history of hypertrophic obstructive cardiomyopathy without acute decompensation. There is no history of coronary artery disease and she has a fair functional capacity. Per Cardiology standpoint, the patient is at a moderate-risk for moderate-risk surgery. Continue Cardizem therapy given HOCM. Follow-up with primary rn cardiac rehab at [facility] as scheduled. There is no additional cardiac workup indicated prior to surgery. Thank you for allowing us to care for this patient. Please call with any questions or concerns. This medical document was created using an electronic medical record system with voice recognition software and computerized dictation system. Although this document has been carefully reviewed, there might still be some phonetic and typographical errors. Occasional wrong-word or ``sound-alike substitutions may have occurred due to the inherent limitations of voice recognition software. These areas are purely typographical due to imperfections of the software programs and do not reflect any compromise in the patient's medical care. Please read the chart carefully and recognize, using context, where these substitutions have occurred. Plan discussed with: Patient, Other NYHA Physical activity limitations: NA Date of Service: September 12, 2024 Billing Provider: MEAGAN BUCIO Cardiology Common Codes: [id number] INP/OBS CARE (High) MEAGAN BUCIO September 12, 2024 18:53
[2024-09-12 21:24] LABS: Urine Bacteria None Seen /hpf (None Seen)
[2024-09-12 21:34] LABS: Urine Blood Negative /uL (Negative); Urine Clarity Clear (Clear); Urine Color Light-Yellow (Yellow); Urine Protein, UAD Negative (Negative); Urine Specific Gravity 1.016 (1.001-1.035); Urine Squamous Epithelial Cell FEW /hpf (<5); Urine Urobilinogen Normal (Negative); Urine WBC 1 /HPF (0-5); Urine pH 6.5 (5.0-9.0)
[2024-09-13] VITALS (7 sets, daily range): BP systolic 126–146; BP diastolic 52–58; PULSE 65–69; RESP 18; TEMP 97.5–98.7; O2SAT 97–100
[2024-09-13 06:46] LABS: % Iron Saturation 6.7 % (15-50)
[2024-09-13 06:52] LABS: Basophils # (auto) 0 10 ^3/uL (0-0.2); Basophils % (auto) 0.6 % (0.0-2.0); Eosinophils # (auto) 0.2 10 ^3/uL (0-0.8); Eosinophils % (auto) 3.7 % (0.0-7.0); Hemoglobin 7.3 g/dL (12.2-16.2); Lymphocytes % (auto) 18.7 % (10.0-50.0); Mean Corpuscular Hemoglobin 22.6 pg (28.0-32.0); Mean Corpuscular Hgb Conc. 31.9 g/dL (32.0-36.0); Mean Corpuscular Volume 70.9 fL (80.0-100.0); Monocytes # (auto) 0.4 10 ^3/uL (0-1.3); Monocytes % (auto) 7.5 % (0.0-12.0); Neutrophils # (auto) 3.7 10 ^3/uL (1.6-8.6); Neutrophils % (auto) 69.5 % (37.0-80.0); Platelet Count (auto) 184 10^3/uL (140-450); Red Blood Cells 3.24 10^6/uL (4.0-5.20); White Blood Cell 5.4 10^3/uL (4.4-10.8)
[2024-09-13 06:57] LABS: Red Cell Distribution Width 25.1 % (11.8-14.3)
[2024-09-13 07:55] LABS: Chloride 107 mmol/L (98-107); Potassium 3.9 mmol/L (3.5-5.1); Sodium 144 mmol/L (136-145)
[2024-09-13 07:56] LABS: Anion Gap 8 (5-15); Carbon Dioxide 29 mmol/L (20-31)
[2024-09-13 07:57] LABS: Calcium 10.3 mg/dL (8.7-10.4)
[2024-09-13 08:01] LABS: BUN/Creatinine Ratio 19.2 (10.0-20.0)
[2024-09-13 08:04] LABS: Blood Urea Nitrogen 25 mg/dL (9-23); Glucose 140 mg/dL (74-106)
--- NOTE | 2024-09-13 09:14 | DVHSR ---
APPROVED REPORT EXAM: Two-dimensional and M-mode echocardiogram with Doppler and color Doppler. Blood Pressure: 129/59 mmHg INDICATION CHF RISK FACTORS Height: 5'2, Weight: 206 DIMENSIONS LVDd4.4 (3.8-5.7cm)LA (2D)4.3 (1.9-4.0cm)Aortic Root2.8 (2.0-3.7cm) LVDs3.0 (2.5-4.0cm)LA (MM) (1.9-4.0cm)Aortic Cusp Exc1.1 (1.5-2.0cm) EF (%) 60.0 (55-70%)Rt. Atrium3.7 (1.9-4.0cm)Asc. Aorta3.1 cm IVSd0.9 (0.7-1.1cm)RV (D)4.8 (1.8-2.4cm) PWd0.7 (0.7-1.1cm) Mitral Valve MitralMitral Stenosis E wave1.55m/sMV Mean GR.5mmHg A wave1.32m/sMV Peak GR.114mmHg E/A ratio1.22D MVAcm2 DECEL [id number] 1/2 [id number] IVRTmsDop MVA2.55cm2 Aortic Valve Aortic ValveAortic Stenosis V11.28m/Muriel Mean GR.20mmHg V22.94m/Muriel Peak GR.35mmHg LVOT Diameter2.0 (1.8-2.4cm)Doppler AVA1.37cm2 AI P 1/2 Edaf203.24ms Pulmonic Valve V21.15m/s Tricuspid Valve TR Velocity3.52m/s [id number] Other Information Quality : Technically LimitedRhythm : Technically limited study due to body habitus.patient position. Conclusion Sinus rhythm. Left atrial enlargement. RV enlargement. Mild mitral annular calcification. Slight thickening of the anterior mitral leaflet. The aortic douglas ve is mildly calcified. The tricuspid is structurally normal. Left ventricular function is preserved at 60% with normal RV function. Zrildssa-ys-zffxrc aortic insufficiency. Mild mitral insufficiency. Moderate tricuspid regurgitatio n. Pulmonary hypertension noted. No pericardial effusion masses or vegetations.
[2024-09-13 09:16] LABS: Anisocytosis Moderate; Hypochromia Slight; Ovalocytes FEW; Platelet Estimate Adequate; Stomatocytes Few; Target Cell FEW
--- NOTE | 2024-09-13 12:13 | DVHPN2 ---
Subjective Patient still has dark stool No abdominal pain Changes from previous H/P or p: No Changes Objective Vitals Vital Signs Date Time Temp Pulse Resp B/P (MAP) Pulse Ox O2 Delivery O2 Flow Rate FiO2 09/13/24 09:39 65 126/52 09/13/24 09:28 98.4 18 100 98.4 09/13/24 08:04 Nasal Cannula* 3 32 Intake/Output Intake and Output 09/13/24 07:00 Intake Total 472 ml Output Total 2 ml Balance 470 ml Intake Oral 472 ml Output Urine Total 2 ml # Voids 3 # Bowel Movements 1 General Appearance: Alert, Oriented X3, Cooperative, No acute distress, mild distress, moderate distress, severe distress, Other Lungs: Clear to auscultation, Normal air movement, Other Cardiovascular: Regular rate, Normal S1, Normal S2, No murmurs, Gallops, Rubs, Other Abdomen: Normal bowel sounds, Soft, No tenderness, No hepatospenomegaly, No masses, Other Medications Current Medications Medications Dose Ordered Sig/Nelida Route Start Time Stop Time Status Last Admin Dose Admin Diltiazem HCl 120 mg DAILY PO 09/12/24 10:00 09/13/24 09:39 120 MG Hydralazine HCl 10 mg Q6HP PRN IV 09/11/24 19:00 Ondansetron HCl 4 mg Q4HP PRN IV 09/11/24 19:00 Pantoprazole Sodium 40 mg BID IV 09/11/24 22:00 09/13/24 09:40 40 MG Acetaminophen/ Hydrocodone Bitart 1 tab Q6HPRN PRN PO 09/11/24 21:30 09/11/24 22:29 1 TAB Iron Sucrose 110 ml @ 110 mls/hr DAILY@1200 IV 09/13/24 12:00 09/17/24 12:59 Diagnostic Test (Pha) 1 strip Q6HR 09/12/24 18:00 09/13/24 05:20 1 STRIP Insulin Human Regular Q6HR SC 09/12/24 18:00 09/13/24 05:20 2 UNITS Dextrose 50 ml UD PRN IV 09/12/24 15:15 Laboratory Results Laboratory Tests 09/13/24 05:18 Chemistry Test 09/13/24 05:18 Calcium Level 10.3 mg/dL (8.7-10.4) HgA1c, TSH Test 09/13/24 05:18 Hemoglobin A1c 6.0 % A1C (<5.7) H Thyroid Stimulating Hormone (TSH) 1.40 uIU/mL (0.55-4.78) Urinalysis Test 09/12/24 21:15 Urine Color Light-yellow (Yellow) Urine Clarity Clear (Clear) Urine pH 6.5 (5.0-9.0) Urine Specific [place] 1.016 (1.001-1.035) Urine Protein Negative (Negative) Urine Ketones Negative (Negative) Urine Blood Negative /uL (Negative) Urine Nitrite Negative (Negative) Urine Bilirubin Negative (Negative) Urine Urobilinogen Normal mg/dL (Negative) Urine Leukocyte Esterase Negative /uL (Negative) Urine RBC <1 /hpf (0 - 4) Urine Microscopic WBC 1 /HPF (0-5) Urine Squamous Epithelial Cells Few /hpf (<5) Urine Bacteria None seen /hpf (None Seen) Urine Glucose Normal mg/dL (Normal) Labs and/or images reviewed: Labs reviewed by me, Image(s) reviewed by me Assessment/Plan Assessment/Plan Severe anemia Possible GI bleed Congestive heart failure Plan: Discussed with Dr. Gonzalez Discussed plan for possible EGD for today. At this time daughter by telephone conversation is concerned about cardiology risk for sedation for this patient. Dr. Gonzalez is aware and and we will reassess patient Plan discussed with: Patient, Daughter, Other (Dr. Foster and RN) My Orders Orders - SONJA BACK Procedure Category Date Status Time * Cardiology Consult CONS 09/12/24 Transmitted 14:55 Npo (Nothing By DIET 09/12/24 Transmitted Mouth) Diet Dinner Date of Service: September 13, 2024 Billing Provider: SONJA BACK Common Visit Codes: [id number] INP/OBS CARE(HIGH) SONJA BACK September 13, 2024 12:13
[2024-09-13] MEDS: IRON SUCROSE COMPLEX 110 ML IV SCH (12:39)
--- NOTE | 2024-09-13 14:36 | DVHPN2 ---
Subjective actve bleeding, pending EGD today Changes from previous H/P or p: No Changes Objective Vitals Vital Signs Date Time Temp Pulse Resp B/P (MAP) Pulse Ox O2 Delivery O2 Flow Rate FiO2 09/13/24 13:00 98.5 69 18 137/58 (84) 100 98.5 09/13/24 08:04 Nasal Cannula* 3 32 Intake/Output Intake and Output 09/13/24 07:00 Intake Total 472 ml Output Total 2 ml Balance 470 ml Intake Oral 472 ml Output Urine Total 2 ml # Voids 3 # Bowel Movements 1 General Appearance: Alert, Oriented X3, Cooperative, No acute distress, mild distress, moderate distress, severe distress, Other Lungs: Clear to auscultation, Normal air movement, Other Cardiovascular: Regular rate, Normal S1, Normal S2, No murmurs, Gallops, Rubs, Other Abdomen: Normal bowel sounds, Soft, No tenderness, No hepatospenomegaly, No masses, Other Medications Current Medications Medications Dose Ordered Sig/Nelida Route Start Time Stop Time Status Last Admin Dose Admin Diltiazem HCl 120 mg DAILY PO 09/12/24 10:00 09/13/24 09:39 120 MG Hydralazine HCl 10 mg Q6HP PRN IV 09/11/24 19:00 Ondansetron HCl 4 mg Q4HP PRN IV 09/11/24 19:00 Pantoprazole Sodium 40 mg BID IV 09/11/24 22:00 09/13/24 09:40 40 MG Acetaminophen/ Hydrocodone Bitart 1 tab Q6HPRN PRN PO 09/11/24 21:30 09/11/24 22:29 1 TAB Iron Sucrose 110 ml @ 110 mls/hr DAILY@1200 IV 09/13/24 12:00 09/17/24 12:59 09/13/24 12:39 110 MLS/HR Diagnostic Test (Pha) 1 strip Q6HR 09/12/24 18:00 09/13/24 12:00 1 STRIP Insulin Human Regular Q6HR SC 09/12/24 18:00 09/13/24 05:20 2 UNITS Dextrose 50 ml UD PRN IV 09/12/24 15:15 Laboratory Results Laboratory Tests 09/13/24 05:18 Chemistry Test 09/13/24 05:18 Calcium Level 10.3 mg/dL (8.7-10.4) HgA1c, TSH Test 09/13/24 05:18 Hemoglobin A1c 6.0 % A1C (<5.7) H Thyroid Stimulating Hormone (TSH) 1.40 uIU/mL (0.55-4.78) Urinalysis Test 09/12/24 21:15 Urine Color Light-yellow (Yellow) Urine Clarity Clear (Clear) Urine pH 6.5 (5.0-9.0) Urine Specific [place] 1.016 (1.001-1.035) Urine Protein Negative (Negative) Urine Ketones Negative (Negative) Urine Blood Negative /uL (Negative) Urine Nitrite Negative (Negative) Urine Bilirubin Negative (Negative) Urine Urobilinogen Normal mg/dL (Negative) Urine Leukocyte Esterase Negative /uL (Negative) Urine RBC <1 /hpf (0 - 4) Urine Microscopic WBC 1 /HPF (0-5) Urine Squamous Epithelial Cells Few /hpf (<5) Urine Bacteria None seen /hpf (None Seen) Urine Glucose Normal mg/dL (Normal) Assessment/Plan Assessment/Plan #1 anemia ?gi bleed: ppi, egd #2 h/o colon cancer s/p surgery #3 h/o breast cancer s/p bilateral mastectomy #4 dm: ssi #5 htn #6 obesity #7 chronic resp failure #8 copd #9 chronic systolic/diastolic heart failure #10 ?acute renal failure ?vasomotor nephropathy Plan discussed with: Patient Date of Service: September 13, 2024 Billing Provider: UCHE BOWSER MD Common Visit Codes: [id number] INP/OBS CARE(HIGH) UCHE BOWSER MD September 13, 2024 14:36
[2024-09-13] MEDS ORDERED: fentaNYL CITRATE 100 MCG/2 ML VL ONE (16:30)
[2024-09-13] MEDS ORDERED: ONDANSETRON HCL 4 MG/2 ML VIAL ONE (16:31)
[2024-09-13] MEDS ORDERED: PROPOFOL 10 MG/ML 20 ML IV ONE (16:31)
[2024-09-13] MEDS ORDERED: LIDOCAINE 2% (LOCAL ANESTH.) PF 5ml SDV ONE (16:31)
[2024-09-13] MEDS ORDERED: GLYCOPYRROLATE 0.2 MG/ML 1ML VIAL ONE (16:31)
--- NOTE | 2024-09-13 16:54 | DVHOP2 ---
Operative Report DATE OF OPERATION: 09/13/24 PROCEDURE: Upper Endoscopy with biopsy. PREOPERATIVE INDICATION: The patient is a 78 -year-old female undergoing endoscopy for anemia and Hemoccult-positive stools POSTOPERATIVE DIAGNOSES: 1. Mild gastroduodenitis 2. Submucosal benign swelling/fold in the pyloric channel from which biopsies were obtained 3. Otherwise normal examination up to the 2nd and 3rd part of the duodenum with good bile drainage and no active bleeding PROCEDURE PERFORMED BY: Heidi Gonzalez GI NURSE: Loraine SCOPE: Olympus videoendoscope. ASA CLASS: 3. PREOPERATIVE MEDICATIONS: Mac Dr. Parish byrd PROCEDURE IN DETAIL: After obtaining an informed consent, the patient was placed on left lateral decubitus position. The patient was then sedated with the above medications. A bite block was placed between her teeth. The endoscope was then passed through the oropharynx, into the esophagus, and through the stomach and pylorus up to the second and third part of the duodenum. The endoscope was then withdrawn. The 2nd and 3rd part of the duodenum were normal and the duodenal bulb showed mild duodenitis. There was good bile drainage. Patient had a benign appearing submucous swelling or fold in the pyloric channel Biopsies were obtained. Gastric biopsies were also obtained. On retroflexion the fundus cardia and angularis were normal. There were no ulcers or significant sore ursodiol GI bleeding noted. Duodenal biopsies were obtained. The endoscope was then withdrawn into distal esophagus which was also unremarka ble and normal The patient tolerated the procedure well without difficulty. COMPLICATIONS : None SPECIMENS: Duodenal biopsies Gastric biopsies Submucosal swelling in the pyloric channel biopsies DISPOSITION: Transfer back to the floor Stable PLAN: 1. Await for biopsy result 2. Will place pt on Protonix 40 mg p.o. daily 3. Resume GI soft diet advance as tolerated 4. DC aspirin NSAIDs smoking alcohol 5. Monitor labs 6. Patient will likely need a colonoscopy as her last exam was over 11 years ago Patient can likely arrange this as an outpatient with [facility] if she is discharge or I will be standing by for a colonoscopy if there is any prolonged hospitalization HEIDI GONZALEZ MD September 13, 2024 16:54
[2024-09-14] VITALS (8 sets, daily range): BP systolic 118–157; BP diastolic 55–66; PULSE 72–81; RESP 18–20; TEMP 97.7–98.5; O2SAT 90–100
[2024-09-14 06:27] LABS: Basophils # (auto) 0 10 ^3/uL (0-0.2); Basophils % (auto) 0.7 % (0.0-2.0); Hemoglobin 7.4 g/dL (12.2-16.2); Neutrophils # (auto) 4.6 10 ^3/uL (1.6-8.6); White Blood Cell 6.2 10^3/uL (4.4-10.8)
[2024-09-14 06:29] LABS: Potassium 4.1 mmol/L (3.5-5.1); Sodium 144 mmol/L (136-145)
[2024-09-14 06:30] LABS: Anion Gap 7 (5-15); Carbon Dioxide 30 mmol/L (20-31); Eosinophils # (auto) 0.1 10 ^3/uL (0-0.8); Eosinophils % (auto) 1.8 % (0.0-7.0); Hematocrit 23.1 % (36.0-46.0); Lymphocytes % (auto) 16.6 % (10.0-50.0); Mean Corpuscular Hemoglobin 22.9 pg (28.0-32.0); Mean Corpuscular Volume 71.4 fL (80.0-100.0); Monocytes # (auto) 0.4 10 ^3/uL (0-1.3); Monocytes % (auto) 7.1 % (0.0-12.0); Neutrophils % (auto) 73.8 % (37.0-80.0); Nucleated Red Blood Cells % 0.2 %; Platelet Count (auto) 195 10^3/uL (140-450); Red Blood Cells 3.23 10^6/uL (4.0-5.20); Red Cell Distribution Width 25.3 % (11.8-14.3)
[2024-09-14 06:36] LABS: BUN/Creatinine Ratio 15.8 (10.0-20.0); Blood Urea Nitrogen 22 mg/dL (9-23); Calcium 10.5 mg/dL (8.7-10.4); Chloride 107 mmol/L (98-107); Glucose 121 mg/dL (74-106)
--- NOTE | 2024-09-14 14:07 | DVHDS2 ---
Discharge Summary Date of Admission September 11, 2024 at 18:57 Date of Discharge: September 14, 2024 Labs/Diagnostic Data: Laboratory Results Test 09/14/24 10:50 09/14/24 04:54 09/13/24 05:18 09/12/24 21:15 POC Glucose 131 mg/dl (70-106) White Blood Count 6.2 10^3/uL (4.4-10.8) Red Blood Count 3.23 10^6/uL (4.0-5.20) Hemoglobin 7.4 g/dL (12.2-16.2) Hematocrit 23.1 % (36.0-46.0) Mean Corpuscular Volume 71.4 fL (80.0-100.0) Mean Corpuscular Hemoglobin 22.9 pg (28.0-32.0) Mean Corpuscular Hemoglobin Concent 32.0 g/dL (32.0-36.0) Red Cell Distribution Width 25.3 % (11.8-14.3) Platelet Count 195 10^3/uL (140-450) Mean Platelet Volume 8.3 fL (6.9-10.8) Neutrophils (%) (Auto) 73.8 % (37.0-80.0) Lymphocytes (%) (Auto) 16.6 % (10.0-50.0) Monocytes (%) (Auto) 7.1 % (0.0-12.0) Eosinophils (%) (Auto) 1.8 % (0.0-7.0) Basophils (%) (Auto) 0.7 % (0.0-2.0) Neutrophils # (Auto) 4.6 10 ^3/uL (1.6-8.6) Lymphocytes # (Auto) 1.0 10 ^3/uL (0.4-5.4) Monocytes # (Auto) 0.4 10 ^3/uL (0-1.3) Eosinophils # (Auto) 0.1 10 ^3/uL (0-0.8) Basophils # (Auto) 0 10 ^3/uL (0-0.2) Nucleated Red Blood Cells 0.2 % Sodium Level 144 mmol/L (136-145) Potassium Level 4.1 mmol/L (3.5-5.1) Chloride Level 107 mmol/L (98-107) Carbon Dioxide Level 30 mmol/L (20-31) Anion Gap 7 (5-15) Blood Urea Nitrogen 22 mg/dL (9-23) Creatinine 1.39 mg/dL (0.550-1.02) Glomerular Filtration Rate Calc 39 mL/min (>90) BUN/Creatinine Ratio 15.8 (10.0-20.0) Serum Glucose 121 mg/dL (74-106) Calcium Level 10.5 mg/dL (8.7-10.4) Platelet Estimate Adequate Hypochromasia (manual) Slight Poikilocytosis (manual) Slight Anisocytosis (manual) Moderate Microcytosis Slight Target Cells Few Ovalocytes Few Stomatocytes Few Hemoglobin A1c 6.0 % A1C (<5.7) Iron Level 25 ug/dL (50-170) Total Iron Binding Capacity 372 ug/dL (250-425) Percent Iron Saturation 6.7 % (15-50) Ferritin 6.1 ng/mL (10-291) Thyroid Stimulating Hormone (TSH) 1.40 uIU/mL (0.55-4.78) Urine Color Light-yellow (Yellow) Urine Clarity Clear (Clear) Urine pH 6.5 (5.0-9.0) Urine Specific [place] 1.016 (1.001-1.035) Urine Protein Negative (Negative) Urine Ketones Negative (Negative) Urine Blood Negative /uL (Negative) Urine Nitrite Negative (Negative) Urine Bilirubin Negative (Negative) Urine Urobilinogen Normal mg/dL (Negative) Urine Leukocyte Esterase Negative /uL (Negative) Urine RBC <1 /hpf (0 - 4) Urine Microscopic WBC 1 /HPF (0-5) Urine Squamous Epithelial Cells Few /hpf (<5) Urine Bacteria None seen /hpf (None Seen) Urine Glucose Normal mg/dL (Normal) Stool Occult Blood Positive (Negative) Stool Occult Blood Sample #3 (Negative) Test 09/11/24 19:59 09/11/24 14:02 09/11/24 11:08 Prothrombin Time 11.3 sec (9.3-11.8) Prothrombin Time INR 1.07 (0.9-1.15) Activated Partial Thromboplast Time 23.6 SEC (24.5-34.5) Troponin I High Sensitivity 12 ng/L (</=34) Total Bilirubin 0.4 mg/dL (0.2-1.0) Aspartate Amino Transferase (AST) 11 U/L (13-40) Alanine Aminotransferase (ALT) 15 U/L (7-40) Alkaline Phosphatase 54 U/L (46-116) B-Type Natriuretic Peptide 104.82 pg/mL (0-100) Total Protein 6.9 g/dL (5.7-8.2) Albumin 4.2 g/dL (3.2-4.8) Other Laboratory Tests 09/14/24 04:54 Brief Hx & Hospital Course: 78 F with hx of colon cancer, COPD on home o2 admitted for symptomatic anemia and dark stools. patient hashx of colon cancer, last known colonoscopy 11 years ago althoug per pt 5 years ago had another one. follows with onc. patient had 2 unit PRBC and stable h/h after. EGD done yesterday, bx collected. H/H stable. given iv iron. stable to dc home follow up with onc and outpatient with colonoscopy Condition at Discharge: Good Final Diagnosis/Problems List #1 anemia LGIB more likely #2 h/o colon cancer s/p surgery #3 h/o breast cancer s/p bilateral mastectomy #4 dm: ssi #5 htn #6 obesity #7 chronic resp failure #8 copd #9 chronic systolic/diastolic heart failure #10 ?acute renal failure ?vasomotor nephropathy Discharge Disposition: Home Discharge Statement: "Patient was advised to return to the ER or call 911 if any headaches, dizziness, shortness of breath, chest pain, abdominal pain, bleeding, fevers, or worsening of medical condition. Patient was counseled about treatment plan, medications, possible side effects, patientverbalized understanding. All questions were answered to the best of my ability. This discharge took greater then 30 minutes in planning, reviewing documentation, counseling the patient, and discussing with other team members." ASSESSMENT ASSESSMENT Assessment Date of Service: September 14, 2024 Billing Provider: UCHE BOWSER MD Common Visit Codes: 96152-JWZ/OBS DISCH DAY >30min UCHE BOWSER MD September 14, 2024 14:07
--- NOTE | 2024-09-14 17:02 | DVHPN2 ---
Progress Note - Dictate Date Seen: September 14, 2024 Medical Necessity Reason Pt with a Central, PICC or Fol: No Subjective No new complaints Patient is tolerating diet No further GI bleeding Hemoglobin stable at 7.4 EGD showed gastroduodenitis vital signs Vital Sign Date Time Temp Pulse Resp B/P (MAP) Pulse Ox O2 Delivery O2 Flow Rate FiO2 09/14/24 14:44 148/64 (92) 09/14/24 13:00 97.8 81 20 98 97.8 09/14/24 07:30 Nasal Cannula* 3 32 Total Intake and Output 09/13/24 09/13/24 09/14/24 15:00 23:00 07:00 Intake Total 100 ml 175 ml Balance 100 ml 175 ml medications Current Medications Medications Dose Ordered Sig/Nelida Route Start Time Stop Time Status Last Admin Dose Admin Diltiazem HCl 120 mg DAILY PO 09/12/24 10:00 09/14/24 10:48 120 MG Hydralazine HCl 10 mg Q6HP PRN IV 09/11/24 19:00 Ondansetron HCl 4 mg Q4HP PRN IV 09/11/24 19:00 Pantoprazole Sodium 40 mg BID IV 09/11/24 22:00 09/14/24 10:47 40 MG Acetaminophen/ Hydrocodone Bitart 1 tab Q6HPRN PRN PO 09/11/24 21:30 09/11/24 22:29 1 TAB Iron Sucrose 110 ml @ 110 mls/hr DAILY@1200 IV 09/13/24 12:00 09/17/24 12:59 09/14/24 11:04 110 MLS/HR Diagnostic Test (Pha) 1 strip Q6HR 09/12/24 18:00 09/14/24 14:34 1 STRIP Insulin Human Regular Q6HR SC 09/12/24 18:00 09/14/24 05:39 2 UNITS Dextrose 50 ml UD PRN IV 09/12/24 15:15 objective General: NAD, AAOX3 Chest: lung franco clear to auscultation Heart: RRR, no murmur Abdomen: non-distended, no tenderness to palpation, +BS laboratory and microbiology Laboratory Tests 09/14/24 04:54 Test 09/14/24 04:54 Range/Units Serum Glucose 121 H 74-106 mg/dL Problems(with codes): (1) Symptomatic anemia (2) Chest pain (3) Dyspnea (4) Melena Prognosis Plan Protonix 40 mg p.o. daily Carafate 1 g p.o. q.h.s. DC aspirin NSAIDs smoking alcohol Discharge planning is in progress Outpatient follow up with [facility] for elective colonoscopy Once again thank you for allowing me to participate in the care of the patient Dietary Evaluation Review Comments: 1) advance diet to medically feaible 2) Continue current POC Expected Outcomes/Goals: to meet at least 75% estimated needs fu high 2-3 days Plan discussed with: Patient CC Plasma Assessment Blood Product Administration S: [id number] HEIDI JOHN MD September 14, 2024 17:02
== END 2024-09-14 19:45 | disposition home or self-care (01) | DRG 811 ==
LOC: EDBD 10:22 → ER 10:26 → OVERFLOW 18:57 → WEST WING 22:48
PROVIDERS: ADMIT Student in an Organized Health Care Education/Training Program; ATTEND Student in an Organized Health Care Education/Training Program
PROC: 30233N1 Transfusion of Nonautologous Red Blood Cells into Peripheral Vein, Percutaneous Approach (ICD-10-PCS; principal; 2024-09-11)
PROC: 0DB98ZX Excision of Duodenum, Via Natural or Artificial Opening Endoscopic, Diagnostic (ICD-10-PCS; 2024-09-13)
PROC: 0DB78ZX Excision of Stomach, Pylorus, Via Natural or Artificial Opening Endoscopic, Diagnostic (ICD-10-PCS; 2024-09-13)
PROC: 0DB68ZX Excision of Stomach, Via Natural or Artificial Opening Endoscopic, Diagnostic (ICD-10-PCS; 2024-09-13)
DX: D62 Acute posthemorrhagic anemia (principal); K29.91 Gastroduodenitis, unspecified, with bleeding; I13.0 Hypertensive heart and chronic kidney disease with heart failure and stage 1 through stage 4 chronic kidney disease, or unspecified chronic kidney disease; I42.1 Obstructive hypertrophic cardiomyopathy; I50.42 Chronic combined systolic (congestive) and diastolic (congestive) heart failure; I48.92 Unspecified atrial flutter; J96.10 Chronic respiratory failure, unspecified whether with hypoxia or hypercapnia; N17.9 Acute kidney failure, unspecified; I27.20 Pulmonary hypertension, unspecified; E11.22 Type 2 diabetes mellitus with diabetic chronic kidney disease; N18.9 Chronic kidney disease, unspecified; E66.9 Obesity, unspecified; J44.9 Chronic obstructive pulmonary disease, unspecified; E78.5 Hyperlipidemia, unspecified; I35.1 Nonrheumatic aortic (valve) insufficiency; Z98.891 History of uterine scar from previous surgery; Z68.37 Body mass index [BMI] 37.0-37.9, adult; Z85.3 Personal history of malignant neoplasm of breast; Z85.038 Personal history of other malignant neoplasm of large intestine; Z99.81 Dependence on supplemental oxygen; Z79.82 Long term (current) use of aspirin; Z79.84 Long term (current) use of oral hypoglycemic drugs; Z82.49 Family history of ischemic heart disease and other diseases of the circulatory system; Z83.3 Family history of diabetes mellitus; Z90.13 Acquired absence of bilateral breasts and nipples
CPT/HCPCS: 36415; 43239; 71045; 80048; 80053; 81001; 82270; 82728; 82962; 83036; 83540; 83550; 83880; 84443; 84484; 85025; 85610; 85730; 86850; 86900; 86901; 86920; 93005; 93306; 96374; 99291; G0378; J1756; J1815; J2003; J2405; J2470; J2704